=== PATIENT | female | born 1945 | race Caucasian/White ===

== ENCOUNTER 2016-08-17 19:18 | Emergency (ER) | payer MEDICARE, OTHER ==
[~2016-08-17 19:18] MED LIST: AMBIEN5 MG PO; ASPIRIN81 M1 PO; AUGMENTIN 875-1 EAC2 PO; BL MAXEPA CAPSU1 CAP PO; BUPROPION XL300 M1 PO; CALCIUM 600 +1 EA14 PO; CALCIUM 600 W/V1 TAB; CALCIUM600 MG PO; DULCOLAX10 MG/SUPP RC; DULCOLAX5 MG PO; FLEXERIL10 MG PO; LISINOPRIL-HCT1 EAC3 PO; MAALOX PLUS X-150 ML PO; MILK OF MA400 MG/5 M PO; MULTIVITAMIN1 TAB PO; NORCO 7.5/3251 TAB PO; PROBIOTIC1 EA10 PO; SENOKOT-S TABLE1 TAB PO; SYNTHROID150 MC1 PO; SYNTHROID150 MCG; SYNTHROID175 MCG PO; TYLENOL325 MG PO; ULTRAM ER100 MG PO; XALATAN2.5 M1 EACH EYE; XARELTO10 MG PO; ZIAC 2.5-6.25 M1 TAB PO
[2016-08-17] MEDS ORDERED: SENNA8.6 M2 PO (19:38)
[2016-08-17] MEDS ORDERED: TYLENOL325 M2 (19:39)
[2016-08-18] MEDS ORDERED: CITRATE OF MAG300 M1 PO (00:51)
== END 2016-08-18 01:00 ==
LOC: EDMED 19:18
DX: K56.41 Fecal impaction (principal); I10 Essential (primary) hypertension; Z86.718 Personal history of other venous thrombosis and embolism; E03.9 Hypothyroidism, unspecified; Z90.49 Acquired absence of other specified parts of digestive tract; Z96.653 Presence of artificial knee joint, bilateral; Z98.890 Other specified postprocedural states; Z79.82 Long term (current) use of aspirin; Z79.890 Hormone replacement therapy; Z79.899 Other long term (current) drug therapy